=== PATIENT | female | born 1965 ===

== ENCOUNTER 2018-06-26 08:17 | Outpatient (CLI) | payer BC | END 2018-06-26 08:18 | disposition home or self-care (01) | LOC: C.MAMMO 08:17 | DX: Z12.31 Encounter for screening mammogram for malignant neoplasm of breast (principal) ==

== ENCOUNTER 2018-10-07 10:46 | Emergency (ER) | payer BC ==
[2018-10-07 10:59] VITALS: BP 134/76; PULSE 76; RESP 18; TEMP 98.3; O2SAT 99
--- NOTE | 2018-10-07 11:35 | C.PDOC ---
Time Seen by Provider: 10/07/18 11:00 Chief Complaint (Nursing): Upper Extremity Problem/Injury Past Medical History Vital Signs: Last Vital Signs Temp 98.3 F 10/07/18 10:56 Pulse 76 10/07/18 10:56 Resp 18 10/07/18 10:56 BP 134/76 10/07/18 10:56 Pulse Ox 99 10/07/18 10:56 - Medical History PMH: Arthritis, Bronchitis Family History: States: Unknown Family Hx - Social History Hx Tobacco Use: No Hx Alcohol Use: No Hx Substance Use: No - Immunization History Hx Tetanus Toxoid Vaccination: No Hx Influenza Vaccination: No Hx Pneumococcal Vaccination: No ED Course And Treatment O2 Sat by Pulse Oximetry: 99 Disposition - Disposition Referrals: Federico Strickland III, MD [Staff Provider] - Disposition: HOME/ ROUTINE Additional Instructions: GILDARDO GUERRERO, thank you for letting us take care of you today. The emergency medical care you received today was directed at your acute symptoms. If you were prescribed any medication, please fill it and take as directed. It may take several days for your symptoms to resolve. Return to the Emergency Department if your symptoms worsen, do not improve, or if you have any other problems. Please contact your doctor or call one of the physicians/clinics you have been referred to that are listed on the Patient Visit Information form that is included in your discharge packet. Bring any paperwork you were given at discharge with you along with any medications you are taking to your follow up visit. Our treatment cannot replace ongoing medical care by a primary care provider outside of the emergency department. Thank you for allowing the [facility] team to be part of your care today. Follow up with the orthopedic doctor in 3-5 days for re-evaluation and further management. Prescriptions: Ibuprofen [Motrin] 600 mg PO Q6 PRN #20 tab PRN Reason: Pain, Moderate (4-7) Loratadine [Claritin] 10 mg PO DAILY #30 tab Instructions: Trigger Finger Forms: [employer] (Hebrew), Work Excuse
--- NOTE | 2018-10-07 16:20 | C.PDOC ---
History Of Present Illness 52 y/o female comes in to ED complaining of left thumb pain x1 month. Patient denies any trauma or any injuries. Pain is localized to DIP joint. Patient denies seeking medical attention until now. Time Seen by Provider: 10/07/18 11:00 Chief Complaint (Nursing): Upper Extremity Problem/Injury History Per: Patient History/Exam Limitations: no limitations Onset/Duration Of Symptoms: Days Current Symptoms Are (Timing): Still Present Past Medical History Reviewed: Historical Data, Nursing Documentation, Vital Signs Vital Signs: Last Vital Signs Temp 98.3 F 10/07/18 10:56 Pulse 76 10/07/18 10:56 Resp 18 10/07/18 10:56 BP 134/76 10/07/18 10:56 Pulse Ox 99 10/07/18 10:56 - Medical History PMH: Arthritis, Bronchitis Family History: States: No Known Family Hx - Social History Hx Tobacco Use: No Hx Alcohol Use: No Hx Substance Use: No - Immunization History Hx Tetanus Toxoid Vaccination: No Hx Influenza Vaccination: No Hx Pneumococcal Vaccination: No Review Of Systems Except As Marked, All Systems Reviewed And Found Negative. Constitutional: Negative for: Fever Musculoskeletal: Positive for: Other (Left thumb pain) Neurological: Negative for: Weakness, Numbness Physical Exam - Physical Exam Appears: Non-toxic, No Acute Distress Skin: Warm, Dry Head: Atraumatic Eye(s): bilateral: Normal Inspection Oral Mucosa: Moist Neck: Supple Extremity: No Tenderness, Capillary Refill (less than 2 seconds), No Deformity, No Swelling, Other (Trigger finger on the left thumb DIP joint) Extremity: Bilateral: Normal Color And Temperature, Normal ROM Neurological/Psych: Oriented x3, Normal Speech, Normal Motor, Normal Sensation ED Course And Treatment O2 Sat by Pulse Oximetry: 99 (RA) Pulse Ox Interpretation: Normal Disposition - Disposition Referrals: Federico Strickland III, MD [Staff Provider] - Disposition: HOME/ ROUTINE Disposition Time: 11:15 Condition: GOOD Additional Instructions: GILDARDO GUERRERO, thank you for letting us take care of you today. The emergency medical care you received today was directed at your acute symptoms. If you were prescribed any medication, please fill it and take as directed. It may take several days for your symptoms to resolve. Return to the Emergency Department if your symptoms worsen, do not improve, or if you have any other problems. Please contact your doctor or call one of the physicians/clinics you have been referred to that are listed on the Patient Visit Information form that is included in your discharge packet. Bring any paperwork you were given at discharge with you along with any medications you are taking to your follow up visit. Our treatment cannot replace ongoing medical care by a primary care provider outside of the emergency department. Thank you for allowing the [facility] team to be part of your care today. Follow up with the orthopedic doctor in 3-5 days for re-evaluation and further management. Prescriptions: Ibuprofen [Motrin] 600 mg PO Q6 PRN #20 tab PRN Reason: Pain, Moderate (4-7) Loratadine [Claritin] 10 mg PO DAILY #30 tab Instructions: Trigger Finger Forms: [employer] (Greenlandic), Work Excuse - Clinical Impression Clinical Impression: Trigger finger - Scribe Statement The provider has reviewed the documentation as recorded by the Evanibeugenia Navarro Provider Attestation: All medical record entries made by the Scribe were at my direction and personally dictated by me. I have reviewed the chart and agree that the record a ccurately reflects my personal performance of the history, physical exam, medical decision making, and the department course for this patient. I have also personally directed, reviewed, and agree with the discharge instructions and disposition.
== END 2018-10-07 11:36 | disposition home or self-care (01) ==
LOC: C.ER 10:46
DX: M65.312 Trigger thumb, left thumb (principal)